=== PATIENT | male | born 1985 | race Caucasian/White ===

== ENCOUNTER 2018-02-17 02:58 | Emergency (ER) | payer BC, OTHER ==
[~2018-02-17] VITALS: Ht 190.5 cm; Wt 97.5 kg
[2018-02-17] MEDS ORDERED: EXCEDRIN CAPLE1 EACH PO (03:13)
[2018-02-17] MEDS ORDERED: ALEVE220 MG PO (03:13)
[2018-02-17] MEDS ORDERED: TRAMADOL 50 MG50 MG PO (04:37)
[2018-02-17] MEDS ORDERED: NORFLEX100 MG PO (04:37)
[2018-02-17] MEDS ORDERED: NAPROSYN500 MG PO (04:37)
[2018-02-17 04:56] VITALS: BP 136/90
== END 2018-02-17 04:57 | disposition home or self-care (01) ==
LOC: ER 02:58
DX: S16.1XXA Strain of muscle, fascia and tendon at neck level, initial encounter (principal); G44.209 Tension-type headache, unspecified, not intractable; Z90.89 Acquired absence of other organs; Z91.018 Allergy to other foods; W18.39XA Other fall on same level, initial encounter; Y93.89 Activity, other specified; Y92.89 Other specified places as the place of occurrence of the external cause; Y99.8 Other external cause status